=== PATIENT | male | born 1955 | race Two or more races ===

== ENCOUNTER 2023-09-20 00:16 | Inpatient (IN) | payer OTHER, MEDICAID ==
[~2023-09-20] VITALS: Ht 172.7 cm; Wt 93.3 kg
[2023-09-20 05:32] LABS: Basophils # (auto) 0 10 ^3/uL (0-0.2); Basophils % (auto) 0.2 % (0.0-2.0); Eosinophils # (auto) 0 10 ^3/uL (0-0.8); Hematocrit 44.3 % (41.0-53.0); Hemoglobin 14.9 g/dL (13.5-17.5); Lymphocytes # (auto) 0.7 10 ^3/uL (0.4-5.4); Lymphocytes % (auto) 5.6 % (10.0-50.0); Mean Corpuscular Hemoglobin 30.1 pg (28.0-32.0); Mean Corpuscular Hgb Conc. 33.7 g/dL (32.0-36.0); Mean Corpuscular Volume 89.3 fL (80.0-100.0); Monocytes # (auto) 0.5 10 ^3/uL (0-1.3); Monocytes % (auto) 4.2 % (0.0-12.0); Neutrophils # (auto) 10.9 10 ^3/uL (1.6-8.6); Red Blood Cells 4.96 10^6/uL (4.5-5.90); Red Cell Distribution Width 13.8 % (11.8-14.3); White Blood Cell 12.1 10^3/uL (4.4-10.8)
[2023-09-20 05:36] LABS: Alanine Aminotransferase 28 U/L (7-40); Albumin 4.7 g/dL (3.2-4.8); Alkaline Phosphatase 78 U/L (46-116); Anion Gap 8 (5-15); Aspartate Aminotransferase 20 U/L (13-40); BUN/Creatinine Ratio 16.3 (10.0-20.0); Blood Urea Nitrogen 15 mg/dL (9-23); Calcium 10.4 mg/dL (8.7-10.4); Carbon Dioxide 27 mmol/L (20-30); Chloride 104 mmol/L (98-107); Glucose 129 mg/dL (74-106); Lipase 29 U/L (12-53); Potassium 3.8 mmol/L (3.5-5.1); Sodium 139 mmol/L (136-145)
[2023-09-20 05:37] LABS: Bilirubin, Total 0.8 mg/dL (0.2-1.0); Total Protein 7.5 g/dL (5.7-8.2)
[2023-09-20] MEDS: ONDANSETRON HCL 4 MG/2 ML VIAL IV ONE (10:15)
[2023-09-20] MEDS: MORPHINE SULFATE 4 MG/ML SYR/VIAL IV ONE (10:15)
[2023-09-20] MEDS ORDERED: ONDANSETRON HCL 4 MG/2 ML VIAL IV PRN (10:45)
[2023-09-20] MEDS ORDERED: MORPHINE SULFATE INJ 2 MG/ml SYRG IV PRN (10:45)
[2023-09-20] MEDS ORDERED: DOCUSATE SOD 100 MG CAP PO PRN (10:45)
[2023-09-20 13:00] LABS: INR 1.04 (0.9-1.15); Prothrombin Time 10.9 sec (9.3-11.8)
[2023-09-20] MEDS: metroNIDAZOLE 500MG/100ML 100 ML IV SCH (14:00)
[2023-09-20] MEDS: PANTOPRAZOLE 40 MG/10 ML VIAL INJ IV ONE (18:29)
[2023-09-20] MEDS: SODIUM CHLORIDE 0.9% 1,000 ML IV SCH (18:30)
[2023-09-20] MEDS: cefTRIAXone 1GM/50ML D5W 50 ML IV ONE (18:30)
[2023-09-20] MEDS: metroNIDAZOLE 500MG/100ML 100 ML IV ONE (18:44)
[2023-09-21 00:54] VITALS: PULSE 78; RESP 14; O2SAT 96
[2023-09-21 06:14] LABS: Basophils # (auto) 0 10 ^3/uL (0-0.2); Basophils % (auto) 0.3 % (0.0-2.0); Eosinophils # (auto) 0.1 10 ^3/uL (0-0.8); Hematocrit 39.6 % (41.0-53.0); Hemoglobin 13.5 g/dL (13.5-17.5); Lymphocytes # (auto) 1.9 10 ^3/uL (0.4-5.4); Lymphocytes % (auto) 22.6 % (10.0-50.0); Mean Corpuscular Hemoglobin 30.1 pg (28.0-32.0); Mean Corpuscular Volume 88.7 fL (80.0-100.0); Monocytes # (auto) 1.1 10 ^3/uL (0-1.3); Monocytes % (auto) 12.8 % (0.0-12.0); Neutrophils # (auto) 5.2 10 ^3/uL (1.6-8.6); Neutrophils % (auto) 63.3 % (37.0-80.0); Nucleated Red Blood Cells % 0.1 %; Red Blood Cells 4.46 10^6/uL (4.5-5.90); Red Cell Distribution Width 13.7 % (11.8-14.3); White Blood Cell 8.2 10^3/uL (4.4-10.8)
[2023-09-21 06:23] LABS: Alanine Aminotransferase 20 U/L (7-40); Albumin 3.9 g/dL (3.2-4.8); Alkaline Phosphatase 62 U/L (46-116); Anion Gap 6 (5-15); Aspartate Aminotransferase 19 U/L (13-40); BUN/Creatinine Ratio 12.3 (10.0-20.0); Bilirubin, Total 0.7 mg/dL (0.2-1.0); Blood Urea Nitrogen 10 mg/dL (9-23); Calcium 9.1 mg/dL (8.5-10.1); Carbon Dioxide 27 mmol/L (20-30); Chloride 110 mmol/L (98-107); Glucose 99 mg/dL (74-106); Potassium 3.5 mmol/L (3.5-5.1); Sodium 143 mmol/L (136-145); Total Protein 6.4 g/dL (5.7-8.2)
[2023-09-21 07:48] VITALS: PULSE 74; RESP 16; O2SAT 96
[2023-09-21] MEDS: cefTRIAXone 1GM/50ML D5W 50 ML IV SCH (09:37)
[2023-09-21 10:04] LABS: Urine Bacteria None Seen /hpf (None Seen)
[2023-09-21 10:41] LABS: Urine Blood Negative /uL (Negative); Urine Clarity Clear (Clear); Urine Color Light-Yellow (Yellow); Urine Mucus FEW (None Seen); Urine Protein, UAD Negative (Negative); Urine Specific Gravity 1.017 (1.001-1.035); Urine Urobilinogen Normal (Negative); Urine WBC 2 /hpf (0 - 3)
[2023-09-21 17:34] VITALS: BP 143/83; PULSE 83; RESP 16; TEMP 98.2; O2SAT 97
[2023-09-21 17:47] VITALS: BP 143/83; PULSE 83; RESP 16; TEMP 98.2; O2SAT 97
[2023-09-21 20:00] VITALS: RESP 18; O2SAT 96
[2023-09-21 21:40] VITALS: BP 128/65; PULSE 78; RESP 18; TEMP 97.6; O2SAT 98
[2023-09-22] VITALS (9 sets, daily range): BP systolic 115–148; BP diastolic 65–78; PULSE 67–95; RESP 16–20; TEMP 97.4–98.3; O2SAT 95–100
[2023-09-22 07:12] LABS: Basophils # (auto) 0 10 ^3/uL (0-0.2); Basophils % (auto) 0.7 % (0.0-2.0); Eosinophils # (auto) 0.1 10 ^3/uL (0-0.8); Eosinophils % (auto) 2.1 % (0.0-7.0); Hematocrit 37.8 % (41.0-53.0); Hemoglobin 12.8 g/dL (13.5-17.5); Lymphocytes % (auto) 28.8 % (10.0-50.0); Mean Corpuscular Hemoglobin 30.5 pg (28.0-32.0); Mean Corpuscular Volume 89.9 fL (80.0-100.0); Monocytes # (auto) 0.7 10 ^3/uL (0-1.3); Neutrophils % (auto) 58.4 % (37.0-80.0); Nucleated Red Blood Cells % 0.1 %; Red Blood Cells 4.21 10^6/uL (4.5-5.90); Red Cell Distribution Width 13.7 % (11.8-14.3); White Blood Cell 6.8 10^3/uL (4.4-10.8)
[2023-09-22 07:14] LABS: Alanine Aminotransferase 20 U/L (7-40); Alkaline Phosphatase 58 U/L (46-116); Anion Gap 6 (5-15); Carbon Dioxide 25 mmol/L (20-30); Chloride 111 mmol/L (98-107); Potassium 3.5 mmol/L (3.5-5.1); Sodium 142 mmol/L (136-145)
[2023-09-22 07:15] LABS: BUN/Creatinine Ratio 13.8 (10.0-20.0); Blood Urea Nitrogen 11 mg/dL (9-23); Glucose 74 mg/dL (74-106)
[2023-09-22 07:17] LABS: Albumin 3.7 g/dL (3.2-4.8); Aspartate Aminotransferase 17 U/L (13-40); Bilirubin, Total 0.7 mg/dL (0.2-1.0); Total Protein 6.1 g/dL (5.7-8.2)
[2023-09-22] MEDS ORDERED: ONDANSETRON HCL 4 MG/2 ML VIAL ONE (09:32)
[2023-09-22] MEDS ORDERED: LIDOCAINE 2% (LOCAL ANESTH.) PF 5ml SDV ONE (09:32)
[2023-09-22] MEDS ORDERED: KETOROLAC TROMETH 30 MG/ML 1ML VIAL ONE (09:32)
[2023-09-22] MEDS ORDERED: DexAMETHasone SOD PHOS 10MG/1ML VIAL INJ ONE (09:32)
[2023-09-22] MEDS ORDERED: GLYCOPYRROLATE 0.2 MG/ML 1ML VIAL ONE (09:33)
[2023-09-22] MEDS ORDERED: PROPOFOL 10 MG/ML 20 ML IV ONE (09:33)
[2023-09-22] MEDS ORDERED: ROCURONIUM 10MG/ML 10ML VIAL IV ONE (09:33)
[2023-09-22] MEDS ORDERED: fentaNYL CITRATE 100 MCG/2 ML VL ONE (09:34)
[2023-09-22] MEDS ORDERED: KETAMINE 50mg/ML 1ml syringe ONE (09:34)
[2023-09-22] MEDS ORDERED: SUGAMMADEX 200mg/2ml Vial (100MG/ML) IV ONE (09:35)
[2023-09-22] MEDS: ACETAMINOPHEN IV 100 ML IV ONE (10:39)
[2023-09-22] MEDS: GABAPENTIN 400 MG CAP ONE (10:40)
[2023-09-22] MEDS: CELECOXIB 100 MG CAP ONE (10:40)
[2023-09-22] MEDS: ACETAMINOPHEN IV 1000 MG/100ML (10MG/ML) IV ONE (10:55)
[2023-09-22] MEDS: CELECOXIB 100 MG CAP PO ONE (10:55)
[2023-09-22] MEDS: GABAPENTIN 400 MG CAP PO ONE (10:55)
[2023-09-22] MEDS ORDERED: ONDANSETRON HCL 4 MG/2 ML VIAL IV PRN ×2 (12:00→12:15)
[2023-09-22] MEDS ORDERED: FLUMAZENIL 0.1 MG/ML INJ 10ML MDV IV PRN (12:15)
[2023-09-22] MEDS ORDERED: HYDROmorphone HCL 2 MG/ML VL/or syr IV PRN (12:15)
[2023-09-22] MEDS ORDERED: hydrALAZINE HCL 20 MG/ML VL IV PRN (12:15)
[2023-09-22] MEDS ORDERED: NALOXONE HCL 0.4 MG/ML VIAL IV PRN (12:15)
[2023-09-22] MEDS ORDERED: LABETALOL HCL 5 MG/ML 4ML SYRINGE IV PRN (12:15)
[2023-09-22] MEDS ORDERED: fentaNYL CITRATE 100 MCG/2 ML VL IV PRN (12:15)
[2023-09-22] MEDS ORDERED: ePHEDrine SULFATE 50 MG/ML AMP IV PRN (12:15)
[2023-09-22] MEDS: oxyCODONE HCL 5MG TAB PO PRN (12:16)
[2023-09-23 01:00] VITALS: BP 117/56; PULSE 71; RESP 20; TEMP 97.8; O2SAT 97
[2023-09-23 05:00] VITALS: BP 103/58; PULSE 69; RESP 20; TEMP 97.8; O2SAT 96
[2023-09-23 06:40] LABS: Basophils # (auto) 0 10 ^3/uL (0-0.2); Basophils % (auto) 0.1 % (0.0-2.0); Eosinophils # (auto) 0 10 ^3/uL (0-0.8); Hematocrit 36.7 % (41.0-53.0); Hemoglobin 12.5 g/dL (13.5-17.5); Mean Corpuscular Hemoglobin 30.2 pg (28.0-32.0); Mean Corpuscular Volume 88.8 fL (80.0-100.0); Monocytes # (auto) 0.9 10 ^3/uL (0-1.3); Monocytes % (auto) 9.2 % (0.0-12.0); Neutrophils # (auto) 7.8 10 ^3/uL (1.6-8.6); Neutrophils % (auto) 80.7 % (37.0-80.0); Red Blood Cells 4.13 10^6/uL (4.5-5.90); Red Cell Distribution Width 13.3 % (11.8-14.3); White Blood Cell 9.7 10^3/uL (4.4-10.8)
[2023-09-23 08:00] VITALS: RESP 18; O2SAT 96
[2023-09-23 09:00] VITALS: BP 141/75; PULSE 71; RESP 17; TEMP 97.8; O2SAT 98
[2023-09-23] MEDS ORDERED: PAR20T PO ×2 (09:25)
[2023-09-23] MEDS ORDERED: ATOR40TA52 PO (09:25)
[2023-09-23] MEDS ORDERED: ACE3T PO (11:19)
[2023-09-23] MEDS ORDERED: AMOX500T86 PO (11:19)
[2023-09-23 12:19] VITALS: BP 135/72; PULSE 71; RESP 18; TEMP 36.6; O2SAT 98
[2023-09-23 12:43] VITALS: BP 131/64; PULSE 73; RESP 18; TEMP 98.2; O2SAT 99
== END 2023-09-23 14:28 | disposition home or self-care (01) | DRG 854 ==
LOC: ER 00:16 → EDSEX 00:16 → EDBD 00:16 → OVERFLOW 14:25 → EAST 09-21 17:19
PROVIDERS: ADMIT Nurse Practitioner Family; ATTEND Nurse Practitioner Acute Care
PROC: 0FT44ZZ Resection of Gallbladder, Percutaneous Endoscopic Approach (ICD-10-PCS; principal; 2023-09-22 11:01)
DX: A41.9 Sepsis, unspecified organism (principal); I48.92 Unspecified atrial flutter; K80.12 Calculus of gallbladder with acute and chronic cholecystitis without obstruction; I50.32 Chronic diastolic (congestive) heart failure; E66.9 Obesity, unspecified; E78.5 Hyperlipidemia, unspecified; F41.9 Anxiety disorder, unspecified; Z68.31 Body mass index [BMI] 31.0-31.9, adult
CPT/HCPCS: 36415; 71045; 74176; 76705; 78226; 80053; 81001; 82247; 83690; 84484; 85025; 85610; 86850; 86900; 86901; 93005; 93306; C9113; G0378; J0131; J1100; J1885; J2001; J2405; J2704; J3490